=== PATIENT | male | born 1950 | race Caucasian/White ===

== ENCOUNTER → 2016-09-15 | Day surgery (SDC) | payer MEDICARE, OTHER ==
[~2016-09-15] MED LIST: Acetaminophen TAB* 325 MG PO PRN; Buffered Lidocaine 1% SYR 3ML* 3 ML/SYR SYRINGE INTRADERM ONE; Buffered Lidocaine 1% SYR 3ML* 3 ML/SYR SYRINGE ONE; Cyclopentolate 1% OPTH.SOL* 2 ML BTL ONE; Flurbiprofen 0.03% OPTH.SOL* 2.5 ML BTL ONE; Lidocaine 1% MPF* 2 ML VIAL ONE; Midazolam* 1 MG/ML 2 ML VIAL (2 MG) ONE; Neomycin/Polymy/Dex OPHTH.OIN* 3.5 GM ONE; Phenylephrine 2.5% OPTH.SOL* 2 ML BTL ONE; Tetracaine 0.5% OPTH.SOL 4 ML* 1 DROP BTL ONE; Tropicamide 1% OPTH.SOL* BTL ONE; fentaNYL* 50 MCG/ML 2 ML VIAL (100 MCG VIAL) ONE
[2016-09-15 11:22] VITALS: BP 126/79
--- NOTE | 2016-09-15 21:30 | OP ---
DATE OF OPERATION: 09/15/16 [facility] DATE OF : 52 SURGEON: Dr. Patrick Narvaez. BR[employer] INSTRUMENT MAKER: None. ANESTHESIOLOGIST: Juan Guillermo MD ANESTHESIA: Topical with intravenous sedation. PRE-OP DIAGNOSIS: Cataract, right eye. POST-OP DIAGNOSIS: Cataract, right eye. OPERATIVE PROCEDURE: Phacoemulsification and cataract extraction with posterior chamber intraocular lens implant, right eye. COMPLICATIONS: None. BLOOD LOSS: None. DESCRIPTION OF PROCEDURE: The patient was brought to the operating room and received a small amount of intravenous sedation. A drop of Tetracaine was placed in his right eye. He was prepped and draped in the usual sterile fashion for ophthalmic surgery and attention was directed to the right eye where a speculum was placed. A paracentesis was created at the 11 o'clock position and 0.1 cc of 1 percent preservative-free Lidocaine was injected into the anterior chamber followed by DisCoVisc. The eye was digitally stabilized while a 2.75 mm keratome was used to create a triplanar clear corneal incision at the 9 o'clock position. A continuous curvilinear capsulorrhexis was created with a cystotome and Utrata forceps. BSS on a cannula was used to hydrodissect the lens from the capsule. Phacoemulsification was performed in a divide-and- conquer technique to create four fragments which were removed. Residual cortical material was removed with irrigation and aspiration. DisCoVisc was used to inflate the capsular bag and an SN60AT 23.0 diopter lens was folded and inserted into the capsular bag. DisCoVisc was removed using irrigation and aspiration. BSS on a cannula was used to hydrate the corneal stroma and seal the wound. At the end of the case the pupil was round and the lens was centered. The eye was of normal pressure and the wound was water tight. The speculum was removed and topical Maxitrol ointment was placed on the surface of the eye. The eye was closed, patched and shielded and the patient was sent to the recovery room in stable condition with post operative instructions and follow-up appointment given. [id number]/CPS #: [id number] MTDD
== END | disposition home or self-care (01) ==
LOC: OREAST 08:55
PROVIDERS: ATTEND Ophthalmology
DX: H25.11 Age-related nuclear cataract, right eye (principal); I25.10 Atherosclerotic heart disease of native coronary artery without angina pectoris; F17.200 Nicotine dependence, unspecified, uncomplicated; E03.9 Hypothyroidism, unspecified; Z85.21 Personal history of malignant neoplasm of larynx
CPT/HCPCS: A9270-GY; J2250; J3010; V2632

== ENCOUNTER 2019-03-23 07:55 | Emergency (ER) | payer MEDICARE, OTHER ==
[2019-03-23 08:16] VITALS: BP 119/71
--- NOTE | 2019-03-23 08:36 | UC ---
General HPI - HPI Summary HPI Summary: Patient presents to urgent care with 3-4 days of progressive malaise, congestion , cough productive yellow sputum, fatigue, and erythema of his left bicep area. Patient states he had a bug bite that seemed to itch a little bit. Patient states he nausea she was getting more red. No documented fever. Patient with decreased by mouth. No nausea, vomiting, diarrhea. No recent travel. No sick contacts. Patient does have a history of tobacco use and quit 3 months ago. Patient states his continues to smoke. Patient does not have a diagnosis of COPD. Patient does not have an house. Patient medication reviewed this visit. - History of Current Complaint Chief Complaint: UCGeneralIllness Stated Complaint: FEVER, AND COUGH Time Seen by Provider: 03/23/19 08:30 Hx Obtained From: Patient, Medical Records Onset/Duration: Gradual Onset Onset Severity: Mild Pain Intensity: 0 - Allergy/Home Medications Allergies/Adverse Reactions: Allergies Allergy/AdvReac Type Severity Reaction Status Date / Time No Known Allergies Allergy Verified 03/23/19 08:16 Home Medications: Home Medications Acetaminophen TAB* [Tylenol TAB*] 325 mg PO Q4H PRN 03/23/19 [History Confirmed 03/23/19] Losartan TAB* [Cozaar TAB*] 100 mg PO DAILY 03/23/19 [History Confirmed 03/23/19 ] PMH/Surg Hx/FS Hx/Imm Hx Previously Healthy: Yes Cardiovascular History: Hypertension - Surgical History Surgical History: Yes Surgery Procedure, Year, and Place: POLYP REMOVED FROM COLON. REMOVAL OF GROWTH ON VOCAL CORD, THEN RADIATION. TONSILLECTOMY AT 6 YEARS OLD - Family History Known Family History: Positive: Non-Contributory - Social History Occupation: Retired Lives: With Family Alcohol Use: Occasionally Alcohol Amount: 2-3 cans of beer Substance Use Type: None Smoking Status (MU): Former Smoker Amount Used/How Often: 1 ppd When Did the Patient Quit Smoking/Using Tobacco: 3 months Review of Systems All Other Systems Reviewed And Are Negative: Yes Constitutional: Positive: Chills, Fatigue Skin: Positive: Other - erythema left bicep ENT: Positive: Negative Respiratory: Positive: Cough Cardiovascular: Positive: Negative Is Patient Immunocompromised?: No Physical Exam - Summary Physical Exam Summary: Vital Signs Reviewed: Yes A+Ox3, no discomfort, tired appearing Eyes: Conjunctiva Clear, ZOË. EOM intact and full ENT: Hearing grossly normal TM x 2 clear, mmoist, uvula midline, no exudate, no erythema Neck: Positive: Supple Respiratory: Positive: No respiratory distress, No accessory muscle use + BS throughout, scattered wheeze speaking full, easy sentences Cardiovascular: RRR nl s1, s2 no m/r CBT <2 sec abd soft + BS nt/nd no guarding, no distension Musculoskeletal Exam: ROBB x 4 without difficulty Strength Intact, ROM Intact Neurological: Positive: Alert, + sensation throughout Psychological: Positive: Normal Response To examiner Skin: Positive: no rash, no ecchymosis, left anterior bicepital area with 3x4cm area of erythema, warmth, well demarcated Triage Information Reviewed: Yes Vital Signs: Initial Vital Signs Temp 100 F 03/23/19 08:10 Pulse 77 03/23/19 08:10 Resp 16 03/23/19 08:10 BP 119/71 03/23/19 08:10 Pulse Ox 100 03/23/19 08:10 Diagnostics - Radiology No standard instances Radiology Interpretation Completed By: Radiologist - Patient Name: EVERARDO VITAL Medical Record#: [id number] Ordering Physician: Lien Oliver MD Acct.#: [id number] : 1950 Age: 68 Sex: M Location: [facility] Exam Date: 03/23/19840 ADM Status: REG ER Order Information: CHEST PA & LAT 2 VWS Accession Number: [id number] CPT: 63884 Indication: Cough, tobacco use. 2 views of the chest are reviewed. No mediastinal shift is noted. Heart is of normal size and configuration. No evidence of alveolar consolidation is noted. There is ill- defined nodule in the left parahilar area. This may represent prominent vessels. Likely granuloma is noted in the right lung base. IMPRESSION: Hyperinflated lung jain. Nodularity in the left parahilar area likely represent prominent vasculature. Small granuloma in the right lung base. Depending on tobacco history patient may be eligible for low dose lung screening CT. < Electronically signed by Asmita Magallon MD in OV> 03/23/19858 Dictated By: Asmita Magallon MD Dictated Date/Time: 03/23/19858 Transcribed Date/Time: 03/23/19 0857 Copy to: CC:Earle Royal MD; Lien Oliver MD Imaging - [facility] - [facility] [id number] [place] [id number] ph ([phone]) ph ([phone]) ph ([phone]) This report is only to be considered final once signed by the Provider(s) as displayed in the "<Electronically Signed by >" field (s). Absence of a signature indicates the report is in a draft status and still needs to be finalized. In the event this document was created by someone other than the signing Provider, the individual initiating the document will be listed in the "Entered by:" or "Dictated by:" jain. 1 of 1 Re-Evaluation - Re-Evaluation First Eval Change: Improved - Patient states his breathing feels better following the neb. Patient with improved breath sounds throughout. We'll discharge with MVA and doxycycline as well, her lungs as well as arm. Course/Dx - Course Course Of Treatment: Patient presents to urgent care with 3-4 days of progressive fatigue, cough with productive yellow sputum, erythema for spicy. Patient has not taken any qaqz-ohu-vqhfcre medication. Patient does not have a history of lung disease. On exam vital signs are stable. Patient does have area of cellulitis of his left proximal bicep. Patient also with scattered wheezes and cough. Patient with smoking history. We'll do chest x-ray DuoNeb and reassessed. Anticipate will likely antibiotics may cause. Patient comfortable in agreement with plan. - Diagnoses Provider Diagnosis: Cellulitis, Acute bronchitis Discharge - Sign-Out/Discharge Documenting (check all that apply): Patient Departure All imaging exams completed and their final reports reviewed: Yes - Discharge Plan Condition: Stable Disposition: HOME Prescriptions: Albuterol HFA INHALER* [Ventolin HFA Inhaler*] 2 puff INH Q4H PRN #1 mdi PRN Reason: wheeze DOXYcycline CAP(*) [DOXYcycline 100MG CAP(*)] 100 mg PO BID #20 cap Patient Education Materials: Cellulitis (ED), Acute Bronchitis (ED) Referrals: Earle Royal MD [Primary Care Provider] - Additional Instructions: -Take antibiotics exactly as prescribed until gone -Use your albuterol puffer - 2 puffs every 4 hours for the next 2 days - then as needed -Stay well hydrated - avoid excess caffeine and all alcohol -- These infections are spread by secretions - do NOT share eating or drinking utensils - clean items you share with other people such as cell phones, computer mouse, TV remote, computer tablets,etc.. Once you have been antibiotics for 2 days, change your toothbrush and your pillowcase. - monitor the wound on your arm closely - if you have increased reddness, red streaking, fever or pain - go to the emergency department for further evaluation -Contact your doctor to arrange a follow-up appointment next week - as we discussed you need to follow-up on the small noduled noted on your chest xray today Call your doctor, return here or go to the emergency department with any questions or concerns - Billing Disposition and Condition Condition: STABLE Disposition: Home
[2019-03-23] MEDS ORDERED: Albuterol/Ipratropium NEB.SOL* Albuterol 2.5 MG/Ipratropium 0.5 MG 3 ML INH ONE (08:42)
== END 2019-03-23 09:25 | disposition home or self-care (01) ==
LOC: UCEAST 07:55
DX: R50.9 Fever, unspecified (principal); R05 Cough; Z87.891 Personal history of nicotine dependence
CPT/HCPCS: 71046; 99212; G0463